=== PATIENT | female | born 1980 | race Caucasian/White ===

== ENCOUNTER → 2016-07-22 | Outpatient (CLI) | payer MEDICARE, OTHER ==
[2015-05-10 11:58] VITALS: BP 167/92
[~2016-07-22] MED LIST: ATOM80CA PO; CHOL400C PO; DIVA250T14 PO; LOXA5CAP PO; MULT-638 PO; OXCA300T PO
== END | disposition home or self-care (01) ==
LOC: RT 08:26
PROVIDERS: ATTEND Psychiatry & Neurology Neurology
DX: R56.9 Unspecified convulsions (principal); R25.9 Unspecified abnormal involuntary movements
CPT/HCPCS: 95816

== ENCOUNTER → 2017-02-23 | Outpatient (CLI) | payer MEDICARE, OTHER | END | disposition home or self-care (01) | LOC: RT 07:52 | DX: R25.9 Unspecified abnormal involuntary movements (principal) | CPT/HCPCS: 95816 ==

== ENCOUNTER 2017-04-18 12:01 | Emergency (ER) | payer MEDICARE, OTHER ==
[2017-04-18 12:26] LABS: URINE HCG POC HCG NEGATIVE (Negative)
[2017-04-18 12:55] LABS: AGAP ISTAT 18 mmol/L (6-14); BUN ISTAT 5 mg/dL (8-26); CHLORIDE ISTAT 110 mmol/L (98-110); CREATININE ISTAT 0.4 mg/dL (0.5-1.4); GLUCOSE ISTAT 168 mg/dL (70-99); HEMATOCRIT ISTAT 46 % (36-40); HEMOGLOBIN ISTAT 15.6 g/dL (12-15); ION CA ISTAT 1.14 mmol/L (1.13-1.32); POTASSIUM ISTAT 3.3 mmol/L (3.5-5.0); SODIUM ISTAT 146 mmol/L (135-145); TOT CO2 ISTAT 23 mmol/L (23-32)
[2017-04-18] MEDS: ONDANSETRON ODT 4 MG TAB.RAPDIS. PO (13:04)
[2017-04-18] MEDS: oxyCODONE/APAP 5/325 1 TAB TABLET PO (13:05)
== END 2017-04-18 15:00 | disposition home or self-care (01) ==
LOC: ER 12:01
DX: S82.52XA Displaced fracture of medial malleolus of left tibia, initial encounter for closed fracture (principal); S16.1XXA Strain of muscle, fascia and tendon at neck level, initial encounter; S50.01XA Contusion of right elbow, initial encounter; S09.90XA Unspecified injury of head, initial encounter; F31.9 Bipolar disorder, unspecified; F43.10 Post-traumatic stress disorder, unspecified; F90.9 Attention-deficit hyperactivity disorder, unspecified type; V86.59XA Driver of other special all-terrain or other off-road motor vehicle injured in nontraffic accident, initial encounter; Y93.I9 Activity, other involving external motion; Y92.89 Other specified places as the place of occurrence of the external cause; Y99.8 Other external cause status
CPT/HCPCS: 29515; 36415; 70450; 71045; 72125; 73080; 73610; 80047; 81025; 85014; 85018; 99284-25; Q0162

== ENCOUNTER 2017-04-22 12:28 | Emergency (ER) | payer MEDICARE, OTHER | END 2017-04-22 13:29 | disposition home or self-care (01) | LOC: ER 12:28 | DX: Z47.89 Encounter for other orthopedic aftercare (principal); M79.672 Pain in left foot; R22.42 Localized swelling, mass and lump, left lower limb; F43.10 Post-traumatic stress disorder, unspecified; F90.9 Attention-deficit hyperactivity disorder, unspecified type; F31.9 Bipolar disorder, unspecified; F17.200 Nicotine dependence, unspecified, uncomplicated | CPT/HCPCS: 29515; 99283-25 ==

== ENCOUNTER 2018-05-02 19:25 | Emergency (ER) | payer MEDICARE, OTHER ==
[~2018-05-02] VITALS: Ht 165.1 cm; Wt 104.3 kg
[~2018-05-02 19:25] MED LIST changes: -OXCA300T PO; +OXCA300T19 PO
--- NOTE | 2018-05-02 19:40 | PHYS DOC ---
Past Medical History Past Medical History: Bipolar, Seizure Additional Past Medical Histor: ADHD PTSD mentally challenged Past Surgical History: No Surgical History Smoking: Cigarettes, Less than 1pk/day Alcohol Use: None Drug Use: None Adult General Chief Complaint Chief Complaint: CHEST PAIN [facility] HPI Patient is a 37 year old female who presents with chest pain that started approximately an hour prior to arrival. Worse with deep breaths and moving as well as coughing. Gets a little bit better with exertion. Patient notes that she 's had increased [id number] Mountain Dew's, as well as increased cigarette usage today, smoking a pack whereas she normally smokes a half pack a day. She has no previous cardiac history. She denies any recent travel, trauma, nor known hypercoagulable state. She has had a long-standing cough according to the purchasing administrator that is with her. Patient is developmentally delayed. She lives in a usp. She denies any fever. No recent changes in medication. Discomfort is sharp, in the lower sternum region, with radiation to both shoulders.[] Review of Systems Review of Systems Constitutional: Denies fever or chills [] Eyes: Denies change in visual acuity, redness, or eye pain [] HENT: Denies nasal congestion or sore throat [] Respiratory: See history of present illness[] Cardiovascular: No additional information not addressed in HPI [] GI: Denies abdominal pain, nausea, vomiting, bloody stools or diarrhea [] : Denies dysuria or hematuria [] Musculoskeletal: Denies back pain or joint pain [] Integument: Denies rash or skin lesions [] Neurologic: Denies headache, focal weakness or sensory changes [] Endocrine: Denies polyuria or polydipsia [] All other systems were reviewed and found to be within normal limits, except as documented in this note. Current Medications Current Medications Current Medications Medications (Trade) Dose Ordered Sig/Janet Start Time Stop Time Status Last Admin Dose Admin Aspirin (Children'S Aspirin) 324 mg 1X ONCE 05/02/18 19:45 05/02/18 19:46 DC 05/02/18 21:05 324 MG Allergies Allergies Allergies Coded Allergies Type Severity Reaction Last Updated Verified No Known Drug Allergies 07/17/13 No Physical Exam Physical Exam Constitutional: Well developed, well nourished, mild discomfort, non-toxic appearance. [] HENT: Normocephalic, atraumatic, bilateral external ears normal, oropharynx moist, no oral exudates, nose normal. [] Eyes: PERRLA, EOMI, conjunctiva normal, no discharge. [] Neck: Normal range of motion, no tenderness, supple, no stridor. [] Cardiovascular:Heart rate regular rhythm, no murmur [] Lungs & Thorax: Bilateral breath sounds clear to auscultation, she has tenderness to palpation of the lower sternum which does re-create her discomfort. There is no crepitus. [] Abdomen: Bowel sounds normal, soft, no tenderness, no masses, no pulsatile masses. [] Skin: Warm, dry, no erythema, no rash. [] Back: No tenderness, no CVA tenderness. [] Extremities: No tenderness, no cyanosis, no clubbing, ROM intact, no edema. [] Neurologic: Alert and oriented X 3, normal motor function, normal sensory function, no focal deficits noted. [] Psychologic: Affect normal, judgement normal, mood normal. [] Current Patient Data Vital Signs Vital Signs Date Time Temp Pulse Resp B/P (MAP) Pulse Ox O2 Delivery O2 Flow Rate FiO2 05/02/18 20:57 82 22 132/82 (99) 96 Room Air 05/02/18 19:26 98.1 98.1 Lab Values Laboratory Tests Test 05/02/18 19:55 05/02/18 20:00 05/02/18 20:55 Urine Collection Type Unknown Urine Color Yellow Urine Clarity Clear Urine pH 8.0 Urine Specific [place] 1.015 Urine Protein Negative mg/dL (NEG-TRACE) Urine Glucose (UA) Negative mg/dL (NEG) Urine Ketones (Stick) Negative mg/dL (NEG) Urine Blood Negative (NEG) Urine Nitrite Negative (NEG) Urine Bilirubin Negative (NEG) Urine Urobilinogen Dipstick 1.0 mg/dL (0.2 mg/dL) Urine Leukocyte Esterase Small (NEG) Urine RBC 0 /HPF (0-2) Urine WBC 5-10 /HPF (0-4) Urine Squamous Epithelial Cells Many /LPF Urine Bacteria Few /HPF (0-FEW) Urine Mucus Slight /LPF Urine Opiates Screen Neg (NEG) Urine Methadone Screen Neg (NEG) Urine Barbiturates Neg (NEG) Urine Phencyclidine Screen Neg (NEG) Urine Amphetamine/Methamphetamine Neg (NEG) Urine Benzodiazepines Screen Neg (NEG) Urine Cocaine Screen Neg (NEG) Urine Cannabinoids Screen Neg (NEG) Urine Ethyl Alcohol Neg (NEG) POC Urine HCG, Qualitative Hcg negative (Negative) White Blood Count 19.3 x10^3/uL (4.0-11.0) H Red Blood Count 5.14 x10^6/uL (3.50-5.40) Hemoglobin 14.3 g/dL (12.0-15.5) Hematocrit 44.4 % (36.0-47.0) Mean Corpuscular Volume 86 fL (79-100) Mean Corpuscular Hemoglobin 28 pg (25-35) Mean Corpuscular Hemoglobin Concent 32 g/dL (31-37) Red Cell Distribution Width 15.7 % (11.5-14.5) H Platelet Count 292 x10^3/uL (140-400) Neutrophils (%) (Auto) 54 % (31-73) Lymphocytes (%) (Auto) 34 % (24-48) Monocytes (%) (Auto) 11 % (0-9) H Eosinophils (%) (Auto) 1 % (0-3) Basophils (%) (Auto) 0 % (0-3) Neutrophils # (Auto) 10.4 x10^3uL (1.8-7.7) H Lymphocytes # (Auto) 6.5 x10^3/uL (1.0-4.8) H Monocytes # (Auto) 2.0 x10^3/uL (0.0-1.1) H Eosinophils # (Auto) 0.3 x10^3/uL (0.0-0.7) Basophils # (Auto) 0.1 x10^3/uL (0.0-0.2) Segmented Neutrophils % 51 % (35-66) Band Neutrophils % 3 % (0-9) Lymphocytes % 28 % (24-48) Atypical Lymphocytes % (Manual) 7 % (0-0) H Monocytes % 9 % (0-10) Eosinophils % 1 % (0-5) Metamyelocytes % 1 % (0-0) H Platelet Estimate Adequate (ADEQUATE) Prothrombin Time 13.0 SEC (11.7-14.0) Prothrombin Time INR 1.0 (0.8-1.1) D-Dimer (Sheyla) 0.29 ug/mlFEU (0.00-0.50) Sodium Level 142 mmol/L (136-145) Potassium Level 3.5 mmol/L (3.5-5.1) Chloride Level 105 mmol/L (98-107) Carbon Dioxide Level 26 mmol/L (21-32) Anion Gap 11 (6-14) Blood Urea Nitrogen 6 mg/dL (7-20) L Creatinine 0.5 mg/dL (0.6-1.0) L Estimated GFR (Cockcroft-Gault) 140.4 BUN/Creatinine Ratio 12 (6-20) Glucose Level 124 mg/dL (70-99) H Calcium Level 8.7 mg/dL (8.5-10.1) Magnesium Level 1.7 mg/dL (1.8-2.4) L Total Bilirubin 0.2 mg/dL (0.2-1.0) Aspartate Amino Transferase (AST) 23 U/L (15-37) Alanine Aminotransferase (ALT) 31 U/L (14-59) Alkaline Phosphatase 97 U/L (46-116) Troponin I Quantitative < 0.017 ng/mL (0.000-0.055) JN-Dmy-H-Type Natriuretic Peptide 26 pg/mL (0-124) Total Protein 7.5 g/dL (6.4-8.2) Albumin 2.8 g/dL (3.4-5.0) L Albumin/Globulin Ratio 0.6 (1.0-1.7) L Lipase 310 U/L (73-393) Thyroid Stimulating Hormone (TSH) 3.275 uIU/mL (0.358-3.74) Valproic Acid Level 50 mcg/mL (50-100) Valproic Acid Last Dose Date 05/02/18 Valproic Acid Last Dose Time 0001 Laboratory Tests 05/02/18 20:55 Laboratory Tests 05/02/18 20:55 EKG EKG EKG shows a sinus rhythm at 85 bpm, normal axis, QTC of 383 ms, no ST elevations , interpreted by me at 1932[] Radiology/Procedures Radiology/Procedures PA and lateral chest x-ray shows no infiltrate, no effusion, no pneumothorax[] Course & Med Decision Making Course & Med Decision Making Pertinent Labs and Imaging studies reviewed. (See chart for details) ED course: Patient arrived, was placed in bed, and tolerated exam. She became agitated at the request for urinalysis, later revealed to the nursing staff that she had smoked marijuana and was concerned about that showing up in her drug screen. After the return of the lab and imaging studies, these were discussed with the patient and her purchasing administrator who voiced understanding. All questions were answered. Patient was discharged in improved condition. Medical decision making: Patient with atypical chest pain, achieving 1 point on the heart score. Her elevated white count is noted, believe this to be more of a bronchitic picture. No evidence of pulmonary embolism, no focal infiltrate, no hypoxia, no evidence of thoracic aneurysm, no pneumothorax, no esophageal rupture.[] Dragon Disclaimer Dragon Disclaimer This electronic medical record was generated, in whole or in part, using a voice recognition dictation system. Departure Departure Impression: Primary Impression: Bronchitis Additional Impression: Chest pain Disposition: 01 HOME, SELF-CARE Condition: IMPROVED Referrals: RADHA MUÑOZ STRATEGY DIRECTOR (PCP) Follow-up in 2 days Patient Instructions: Acute Bronchitis, Chest Pain (Nonspecific), Smoking Cessation Additional Instructions: Follow-up with your regular doctor in 2 days. Stop smoking. Return to the ER if worsening discomfort or any other concerns. Scripts D-Methorphan Hb/Prometh Hcl (PROMETHAZINE-DM SYRUP) 118 Ml Syrup 5 ML PO PRN Q4HRS, #120 ML Prov: JEAN YIN DO 05/02/18 Meloxicam (MELOXICAM) 7.5 Mg Tablet 7.5 MG PO DAILY, #20 TAB Prov: JEAN YIN DO 05/02/18 Azithromycin (AZITHROMYCIN TABLET) 250 Mg Tablet 1 PKG PO UD, #6 TAB Prov: JEAN YIN DO 05/02/18 Problem Qualifiers Additional Impression: Chest pain Chest pain type: unspecified Qualified Codes: R07.9 - Chest pain, unspecified JEAN YIN DO May 02, 2018 19:40
[2018-05-02] MEDS ORDERED: ASPIRIN CHEWABLE 81 MG TABLET. PO ONE (19:45)
[2018-05-02 20:09] LABS: BILIRUBIN,URINE NEGATIVE (NEG); CLARITY,URINE CLEAR; COLOR,URINE YELLOW; NITRITE,URINE NEGATIVE (NEG); PROTEIN,URINE NEGATIVE (NEG-TRACE)
[2018-05-02 20:18] LABS: BACTERIA,URINE FEW /HPF (0-FEW); RBC,URINE 0 /HPF (0-2); SQUAMOUS EPITHELIAL CELL,UR MANY /LPF
[2018-05-02 20:48] LABS: BARBITURATES NEG (NEG); BENZODIAZEPINES NEG (NEG); CANNABINOIDS NEG (NEG); COCAINE NEG (NEG); METHADONE NEG (NEG); OPIATES NEG (NEG); PHENCYCLIDINE NEG (NEG)
[2018-05-02 20:51] LABS: AMPHETAMINE/METHAMPHETAMINE NEG (NEG)
[2018-05-02 21:05] LABS: BASO # 0.1 x10^3/uL (0.0-0.2); BASO % 0 % (0-3); EOS # 0.3 x10^3/uL (0.0-0.7); EOS % 1 % (0-3); HEMATOCRIT 44.4 % (36.0-47.0); HEMOGLOBIN 14.3 g/dL (12.0-15.5); LYMPH # 6.5 x10^3/uL (1.0-4.8); LYMPH % 34 % (24-48); MEAN CORPUSCULAR HEMOGLOBIN 28 pg (25-35); MEAN CORPUSCULAR HGB CONC 32 g/dL (31-37); MEAN CORPUSCULAR VOLUME 86 fL (79-100); MONO % 11 % (0-9); NEUT # 10.4 x10^3uL (1.8-7.7); NEUT % 54 % (31-73); PLATELET COUNT 292 x10^3/uL (140-400); RED BLOOD COUNT 5.14 x10^6/uL (3.50-5.40); RED CELL DISTRIBUTION WIDTH 15.7 % (11.5-14.5); WHITE BLOOD COUNT 19.3 x10^3/uL (4.0-11.0)
[2018-05-02 21:19] LABS: ANION GAP 11 (6-14); BLOOD UREA NITROGEN 6 mg/dL (7-20); BUN/CREATININE RATIO 12 (6-20); CALCIUM 8.7 mg/dL (8.5-10.1); CARBON DIOXIDE 26 mmol/L (21-32); CHLORIDE 105 mmol/L (98-107); CREATININE 0.5 mg/dL (0.6-1.0); GFR 140.4; GLUCOSE 124 mg/dL (70-99); POTASSIUM 3.5 mmol/L (3.5-5.1); SODIUM 142 mmol/L (136-145)
[2018-05-02 21:25] LABS: ALBUMIN 2.8 g/dL (3.4-5.0); ALBUMIN/GLOBULIN RATIO 0.6 (1.0-1.7); ALK PHOS 97 U/L (46-116); ALT (SGPT) 31 U/L (14-59); AST (SGOT) 23 U/L (15-37); LIPASE 310 U/L (73-393); MAGNESIUM 1.7 mg/dL (1.8-2.4); TOTAL BILIRUBIN 0.2 mg/dL (0.2-1.0); TOTAL PROTEIN 7.5 g/dL (6.4-8.2)
[2018-05-02 21:29] LABS: VAL ACID 50 mcg/mL (50-100)
[2018-05-02 21:30] LABS: D-DIMER 0.29 ug/mlFEU (0.00-0.50)
[2018-05-02 21:33] LABS: % ATYL 7 % (0-0); % BANDS 3 % (0-9); % EOS 1 % (0-5); % LYMPHS 28 % (24-48); % METAS 1 % (0-0); % MONOS 9 % (0-10); % SEGS 51 % (35-66)
[2018-05-02 21:34] LABS: PLT ESTIMATE ADEQUATE (ADEQUATE)
[2018-05-02 21:57] VITALS: BP 130/63
[2018-05-02] MEDS ORDERED: MELO7.5T29 PO (22:00)
[2018-05-02] MEDS ORDERED: AZIT250T6 PO (22:00)
[2018-05-02] MEDS ORDERED: D-ME118S2 PO (22:00)
--- NOTE | 2018-05-03 00:13 | RAD ---
EXAM: PA and Lateral Views of the Chest DATE: 05/02/2018 8:44 PM INDICATION: CHEST PAIN SINCE TODAY AFTER INCREASED SUGAR AND NICOTINE INTAKE COMPARISON: 04/18/2017 FINDINGS/ IMPRESSION: The heart is not enlarged. Aorta is tortuous. No lobar consolidation. Blunting of left costophrenic angle likely trace pleural effusion. No pneumothorax. Electronically signed by: Bright Lassiter MD (05/03/2018 12:10 AM) [facility]
--- NOTE | 2018-05-03 05:16 | EKG ---
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
== END 2018-05-02 22:25 | disposition home or self-care (01) ==
LOC: ER 19:25
DX: J40 Bronchitis, not specified as acute or chronic (principal); F31.9 Bipolar disorder, unspecified; F17.210 Nicotine dependence, cigarettes, uncomplicated; Z79.82 Long term (current) use of aspirin; R45.1 Restlessness and agitation; F12.90 Cannabis use, unspecified, uncomplicated
CPT/HCPCS: 36415; 71046; 80053; 80164; 80307; 81001; 81025; 83690; 83735; 83880; 84443; 84484; 85007; 85025; 85379; 85610; 87086; 93005; 99284-25

== ENCOUNTER → 2018-05-03 | Outpatient (CLI) | payer MEDICARE, OTHER ==
[2018-05-02 21:57] VITALS: BP 130/63
[~2018-05-03] MED LIST changes: +AZIT250T6 PO; +D-ME118S2 PO; +MELO7.5T29 PO
[2018-05-03 12:09] LABS: CREATININE 0.5 mg/dL (0.6-1.0); GFR 140.4; POTASSIUM 3.9 mmol/L (3.5-5.1)
== END | disposition home or self-care (01) ==
LOC: LAB 11:09
PROVIDERS: ATTEND Psychiatry & Neurology Neurology
DX: R25.9 Unspecified abnormal involuntary movements (principal)
CPT/HCPCS: 36415; 80051; 82310; 82565; 82947; 84520

== ENCOUNTER → 2019-03-13 | Outpatient (CLI) | payer MEDICARE, OTHER ==
[~2019-03-13] MED LIST changes: -D-ME118S2 PO; +PROM118S9 PO
--- NOTE | 2019-03-13 14:59 | KCIC ---
PROCEDURE: KNEE LEFT 3V STUDY DATE: 03/13/2019 CLINICAL INDICATION / HISTORY: Chronic left knee pain. TECHNIQUE: AP, lateral, and oblique views of the left knee. COMPARISON: None FINDINGS: Anatomic alignment. No fracture or aggressive osseous lesions. There is marked joint space narrowing at the patellofemoral compartment with apparent [id number] contact between the patella and the lateral femoral condyle. Osteophytic spurring on the lateral tibial plateau and lateral femoral condyles also evident. No joint effusion, abnormal soft tissue gas or radiopaque foreign body. IMPRESSION: Left knee degenerative changes, best appreciated in the patellofemoral compartment. No fracture or malalignment shown. Electronically signed by: Dex Blake MD (03/13/2019 2:56 PM) [place]
== END | disposition home or self-care (01) ==
LOC: KCIC 09:47
PROVIDERS: ATTEND Nurse Practitioner Family
DX: M17.12 Unilateral primary osteoarthritis, left knee (principal); M25.862 Other specified joint disorders, left knee; G89.29 Other chronic pain
CPT/HCPCS: 73562

== ENCOUNTER → 2020-08-30 | Outpatient (CLI) | payer MEDICARE, OTHER ==
[~2020-08-30] MED LIST changes: +PROM118S10 PO; -PROM118S9 PO
--- NOTE | 2020-08-30 16:37 | RAD ---
Bilateral lower extremity arterial duplex ultrasound study without comparison for bilateral leg numbn ess and diabetes. TECHNIQUE: Real-time grayscale and color and spectral Doppler evaluation of the arteries of lower ext remities is performed. There is minimal calcified atherosclerosis with no significant stenosis in any arterial distribution. No focally elevated velocities are identified. There is triphasic flow throug hout all the arteries of the right lower extremity save for the anterior tibial and dorsalis pedis ar teries which are monophasic but hyperdynamic, likely normal. On the left, there is triphasic flow in all distributions save for the posterior tibial and dorsalis pedis arteries which are monophasic but hyperdynamic, and likely normal, as well as the anterior tibial artery which is monophasic. IMPRESSION: 1. Abnormal flow in the left anterior tibial artery may represent hemodynamically significant stenosi s in this distribution. Remaining arteries of the bilateral lower extremities are patent with no sono graphic evidence of hemodynamically significant stenosis. Findings do not correlate with bilateral sy mptoms. Electronically signed by: Yung Martin MD (08/30/2020 4:35 PM) [id number]
== END ==
LOC: US 14:29
PROVIDERS: ATTEND Podiatrist
DX: I70.203 Unspecified atherosclerosis of native arteries of extremities, bilateral legs (principal); R09.89 Other specified symptoms and signs involving the circulatory and respiratory systems
CPT/HCPCS: 93925